=== PATIENT | male | born 1940 | race Caucasian/White ===

== ENCOUNTER → 2017-02-23 | Outpatient (CLI) | payer OTHER, MEDICARE ==
[~2017-02-23] MED LIST: ALL100 PO; ASPEC81 PO; ATEN-173 PO; CLOP1TAB15 PO; CRS20 PO; CYAN10005 PO; GLCSR500 PO; GLIP-197 PO; OMEG10007 PO; VALS160T60 PO
[2017-02-23 12:24] LABS: BASO % 0.6 %; BASO ABS # 0.03 K/uL (0-0.2); COMPLETE YES; EOS % 4.4 %; IG% 0.2 %; LYMPH % 26.4 %; LYMPH ABS # 1.44 K/uL (1.2-3.4); MEAN CELL VOLUME 98.8 fL (80-100); MEAN CORPUSCULAR HEMOGLOBIN 32.6 pg (25-34); MEAN PLATELET VOLUME 9.5 fL (7.4-10.4); MONO % 9.5 %; NEUT % 58.9 %; PLATELET COUNT 246 K/uL (130-400); RED BLOOD COUNT 4.05 M/uL (4.7-6.1); WHITE BLOOD COUNT 5.45 K/uL (4.8-10.8)
[2017-02-23 13:17] LABS: RATIO 49.5 mcg/mg (0-30.0)
[2017-02-23 13:26] LABS: ESTIMATED AVERAGE GLUCOSE 151 mg/dl; HA1C FLAG Normal (Normal)
[2017-02-23 13:59] LABS: BLOOD UREA NITROGEN 28 mg/dl (7-18); BUN/CREATININE RATIO 21.4 (10-20); CALCIUM 9.4 mg/dl (8.5-10.1); CARBON DIOXIDE 28 mmol/L (21-32); CHLORIDE 106 mmol/L (98-107); GLUCOSE 111 mg/dl (70-99); POTASSIUM 4.7 mmol/L (3.5-5.1); SODIUM 140 mmol/L (136-145); URIC ACID 7.5 mg/dl (2.6-7.2)
[2017-02-23 14:11] LABS: CHOLESTEROL 107 mg/dl (0-200); CHOLESTEROL/HDL RATIO 2.5; FERRITIN 133.7 ng/ml (8.0-388.0); HDL CHOLESTEROL 43 mg/dl; LDL CHOLESTEROL CALCULATED 41 mg/dl; TRIGLYCERIDES 114 mg/dl (0-150); VERY LOW DENSITY LIPOPROT CALC 23 mg/dl
--- NOTE | 2017-03-03 14:10 | CODING QUERY MEDICAL NECESSITY ---
CQSUPPORTING DIAGNOSIS NEEDED A supporting diagnosis is required for the test/procedure performed on this patient in order for us to be reimbursed by the patient's insurance. Please provide a supporting diagnosis for the following test/procedure listed below next to the test name along with your signature. *If there is no additional diagnosis for this patient that would support the following test/procedure please document that below next to the test/procedure. Test(s)/Procedure(s) that require a supporting diagnosis: LONI 02/23/17 VITAMIN D TEST Provider Signature: Date: Thank you Caryn Camp Health Information Management Once completed, please kindly fax back to [phone] For questions please call [phone]
== END | disposition home or self-care (01) ==
LOC: C.LAB1850 09:48
PROVIDERS: ATTEND Internal Medicine
DX: E11.9 Type 2 diabetes mellitus without complications (principal); E78.5 Hyperlipidemia, unspecified; R80.9 Proteinuria, unspecified; I35.0 Nonrheumatic aortic (valve) stenosis; M10.9 Gout, unspecified

== ENCOUNTER → 2017-08-04 | Outpatient (CLI) | payer OTHER, MEDICARE ==
[2017-08-04 12:16] LABS: ESTIMATED AVERAGE GLUCOSE 140 mg/dl; HA1C FLAG Normal (Normal)
[2017-08-04 12:38] LABS: ALT/SGPT 26 U/L (12-78); AST/SGOT 18 U/L (15-37); BLOOD UREA NITROGEN 27 mg/dl (7-18); BUN/CREATININE RATIO 19.6 (10-20); CALCIUM 9.4 mg/dl (8.5-10.1); CARBON DIOXIDE 25 mmol/L (21-32); CHLORIDE 106 mmol/L (98-107); CREATININE 1.38 mg/dl (0.60-1.40); GLUCOSE 103 mg/dl (70-99); POTASSIUM 4.5 mmol/L (3.5-5.1); SODIUM 139 mmol/L (136-145)
[2017-08-04 12:43] LABS: CHOLESTEROL 96 mg/dl (0-200); CHOLESTEROL/HDL RATIO 2.1; HDL CHOLESTEROL 45 mg/dl; LDL CHOLESTEROL CALCULATED 27 mg/dl; TRIGLYCERIDES 122 mg/dl (0-150); VERY LOW DENSITY LIPOPROT CALC 24 mg/dl
== END | disposition home or self-care (01) ==
LOC: C.LAB 10:14
PROVIDERS: ATTEND Internal Medicine
DX: E78.5 Hyperlipidemia, unspecified (principal); E11.9 Type 2 diabetes mellitus without complications

== ENCOUNTER 2018-04-30 12:16 | Emergency (ER) | payer OTHER, MEDICARE ==
[~2018-04-30] VITALS: Ht 175.3 cm; Wt 79.7 kg
[2018-04-30 12:21] VITALS: TEMP 36.4; Ht 175.3 cm; Wt 79.7 kg
[2018-04-30] MEDS ORDERED: DOXYCYCLINE HYCLATE 100 MG CAP PO STA (12:46)
[2018-04-30] MEDS ORDERED: DOXY100C PO (12:50)
[2018-04-30 13:42] VITALS: BP 103/59; PULSE 48; O2SAT 98
--- NOTE | 2018-04-30 20:20 | EMERGENCY ROOM VISIT NOTE ---
History Report prepared by David: Sharmaine Fitch Under the Supervision of: Dr. Gabe Cox M.D. 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 He states he has some swelling but denies any weakness, tenderness, or injuring his ankle. He reports he took some Aleve from alleviated his pain. The patient reports he is a type II diabetic. He states he has an appointment in a couple of days with Dr. Kinjal Fernandez, Telephone Worker. He states he has had gout in the past but notes this is not similar to his prior episodes. 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 A total of ten systems were reviewed and were otherwise negative. Past Medical & Surgical Medical Problems: (1) TIA (transient ischemic attack) Surgical Problems: (1) H/O carotid endarterectomy Family History Gallbladder disease Hypertension Social History Smoking Status: Never Smoker Drug Use: none Marital Status: Housing Status: lives with significant other Occupation Status: retired Current/Historical Medications Scheduled Allopurinol (Zyloprim *), 100 MG PO QAM Aspirin Enteric Coated (Ecotrin Or Generic *), 2 TABS PO QAM Atenolol (Tenormin), 25 MG PO QAM Clopidogrel (Plavix), 75 MG PO QAM Cyanocobalamin (Vitamin B-12), 1,000 MCG PO QAM Doxycycline Hyclate (Vibramycin), 100 MG PO BID Fish Oil ([place]-3), 2,000 CAP PO QAM Glipizide (Glipizide Er), 0.5 TAB PO QAM Metformin Hcl Ext Rel (Glucophage Ext Rel *), 1,000 MG PO BID Rosuvastatin Calcium (Crestor *), 20 MG PO QAM Valsartan/Hctz (Diovan Hct 160MG/25MG), 1 TAB PO QAM Allergies Coded Allergies: Penicillins (Verified Allergy, Unknown, hives, 6/14/16) Uncoded Allergies: SUPREP (Adverse Reaction, Intermediate, D/T KIDNEY FUNCTION, 03/18/16) Physical Exam Vital Signs Date Time Temp Pulse Resp B/P (MAP) Pulse Ox O2 Delivery O2 Flow Rate FiO2 04/30/18 13:42 48 17 103/59 98 Room Air 04/30/18 12:21 36.4 57 18 129/85 98 Room Air Physical Exam GENERAL: Awake, alert, well-appearing, in no distress HENT: Normocephalic, atraumatic. Oropharynx unremarkable. EYES: Normal conjunctiva. Sclera non-icteric. NECK: Supple. No nuchal rigidity. RESPIRATORY: Clear to auscultation. No wheezes. Normal respiratory effort. CARDIAC: Normal rate. Normal rhythm. Extremities warm and well perfused. GI: Soft, non-distended. No tenderness to palpation. No rebound or guarding. No masses. RECTAL: Deferred. MUSCULOSKELETAL: Atraumatic. Chest examination reveals no tenderness. LOWER EXTREMITIES: Redness and very mild tenderness of the left toes and distal foot. No crepitus, bruising, or open wounds. No sig pain with ROM. No other swelling of the leg. NEURO: Normal sensorium. No sensory or motor deficits noted. No facial droop. SKIN: Warm and dry. No rash or jaundice noted. Medical Decision & Procedures Medications Administered Medications (Trade) Dose Ordered Sig/Gualberto Route Start Time Stop Time Status Last Admin Dose Admin Doxycycline Hyclate (Vibramycin Cap) 100 mg NOW STAT PO 04/30/18 12:46 04/30/18 12:47 DC 04/30/18 13:41 100 MG ED Course 1236: The patient was evaluated in room C6. A complete history and physical exam was performed. 1253: I reevaluated the patient. Discussed results and discharge instructions: He verbalized understanding and agreement. The patient is ready for discharge. Medical Decision Triage Nursing notes reviewed. Differential diagnosis: Etiologies such as cellulitis, abscess, MRSA infection, DVT, necrotizing fasciitis, dermatitis, drug eruption, as well as others were entertained. Patient presents with redness and swelling of his left foot ongoing for just over 3 days. Concern for possible infection here. Denies significant trauma. History of gout and states this feels very different. The redness of his toes to dorsum of foot. History of penicillin allergy is unsure what. No systemic symptoms. No significant crepitus or evidence of swelling. Doubt DVT or necrotizing fasciitis. Denies any new trauma and minimal tenderness. Not septic. No appreciable wound. Appears to be consistent with possible cellulitis. Will start on doxycycline at this time. Discussed return precautions and monitor for significant spread. He has follow-up established on Wednesday and advised him to continue with this and again return here if any new or concerning symptoms occur or spreading of redness. First dose of doxycycline given here. Continue with Aleve as needed for discomfort. Medication Reconcilliation Current Medication List: was personally reviewed by me Blood Pressure Screening Patient's blood pressure: Normal blood pressure Blood pressure disposition: Did not require urgent referral Impression Primary Impression: Cellulitis of foot, left Scribe Attestation The scribe's documentation has been prepared under my direction and personally reviewed by me in its entirety. I confirm that the note above accurately reflects all work, treatment, procedures, and medical decision making performed by me. Departure Information Dispostion Home / Self-Care Prescriptions Doxycycline Hyclate (VIBRAMYCIN) 100 Mg Cap 100 MG PO BID for 7 Days, #14 CAP Prov: Gabe Cox M.D. 04/30/18 Referrals Tristan Covington M.D. (PCP) Forms HOME CARE DOCUMENTATION FORM, IMPORTANT VISIT INFORMATION Patient Instructions My [facility] Additional Instructions Utilizing a number prescribed for the entire 7 day course. Because little bit of stomach upset if taken on empty stomach and watch for any photosensitivity to the sun with it. Should however the next several days to resolve your cellulitis. If not improving or more significantly if worsening please return here for reevaluation. Continue to follow-up as you scheduled on Wednesday for reevaluation. If you can have any new or concerning symptoms please feel free to return here at any time.
== END 2018-04-30 13:43 | disposition home or self-care (01) ==
LOC: C.EDB 12:18 → C.EDC 13:43
DX: L03.116 Cellulitis of left lower limb (principal); E11.9 Type 2 diabetes mellitus without complications; Z86.73 Personal history of transient ischemic attack (TIA), and cerebral infarction without residual deficits; Z79.84 Long term (current) use of oral hypoglycemic drugs; Z79.899 Other long term (current) drug therapy; Z88.0 Allergy status to penicillin; Z88.8 Allergy status to other drugs, medicaments and biological substances